=== PATIENT | female | born 2005 | race Caucasian/White ===

== ENCOUNTER 2024-03-01 20:58 | Emergency (ER) | payer MEDICAID ==
[~2024-03-01] VITALS: Ht 165.1 cm; Wt 68.0 kg
[2024-03-01 21:13] VITALS: O2SAT 100
[2024-03-01 21:25] LABS: BASOPHILS % 0.6 % (0.0-2.0); EOSINOPHILS % 1.3 % (0.0-5.0); HEMATOCRIT. 34.1 % (36.0-48.0); HEMOGLOBIN. 11.6 g/dL (12.0-16.0); LYMPHOCYTES % 27.6 % (20.0-50.0); MEAN CORPUSCULAR HEMOGLOBIN 29.3 pg (28.0-32.0); MEAN CORPUSCULAR HGB CONC 34.1 g/dL (31.0-37.0); MEAN PLATELET VOLUME 7.8 fl (7.4-10.4); MONOCYTES % 10.5 % (2.0-8.0); PLATELET 329 x1000/uL (130-400); RED BLOOD CELL COUNT 3.96 mill/uL (4.2-5.4); RED CELL DISTRIBUTION WIDTH 13.7 % (11.6-14.6); WHITE BLOOD COUNT 11.3 x1000/uL (4.5-11.0)
[2024-03-01 21:31] LABS: CHLORIDE 105 mEq/L (98-107); POTASSIUM 4.1 mEq/L (3.5-5.1); SODIUM 136 mEq/L (136-145)
[2024-03-01 21:32] LABS: CARBON DIOXIDE 22 mEq/L (21-32)
[2024-03-01 21:33] LABS: CALCIUM 9.3 mg/dL (8.7-10.4)
[2024-03-01 21:34] LABS: INR 0.9; PROTHROMBIN TIME 9.8 sec (9.6-11.0)
[2024-03-01 21:37] LABS: CREATININE 0.7 mg/dL (0.6-1.0)
[2024-03-01 21:38] LABS: GLUCOSE 79 mg/dL (70-105)
[2024-03-01 21:39] LABS: ALANINE AMINOTRANSFERASE 20 IU/L (10-49); ALBUMIN 4.4 g/dL (3.2-4.8); ASPARTATE AMINOTRANSFERASE 22 IU/L (<34); UREA NITROGEN BLOOD < 5 mg/dL (9-23)
[2024-03-01 21:40] LABS: BILIRUBIN TOTAL 0.4 mg/dL (0.1-1.0); PROTEIN TOTAL 6.8 g/dL (6.0-8.3)
[2024-03-01 21:53] LABS: B-HCG QUANTITATIVE 81768 mIU/mL (<3)
[2024-03-01 21:59] LABS: CLARITY URINE CLEAR (CLEAR); COLOR URINE YELLOW (YELLOW); GLUCOSE URINE NEGATIVE (NEGATIVE); KETONES URINE NEGATIVE (NEGATIVE); LEUKOCYTE ESTERASE URINE NEGATIVE (NEGATIVE); NITRITE URINE NEGATIVE (NEGATIVE); OCCULT BLOOD URINE NEGATIVE (NEGATIVE); PROTEIN URINE NEGATIVE (NEGATIVE); SPECIFIC GRAVITY URINE 1.003 (1.005-1.030); UROBILINOGEN URINE 0.2 E.U./dL (0.2-1.0)
[2024-03-01 22:00] VITALS: BP 111/63; PULSE 77; RESP 18; TEMP 98.2
[2024-03-01] MEDS: ACETAMINOPHEN 325MG TABLET PO ONE (22:19)
== END 2024-03-01 22:30 | disposition home or self-care (01) ==
LOC: ER 20:58
DX: O26.892 Other specified pregnancy related conditions, second trimester (principal); Z3A.22 22 weeks gestation of pregnancy
CPT/HCPCS: 80053; 81003; 84702; 85025; 85610; 86850; 86900; 86901; 36415; 76805; 99284; Z7610

== ENCOUNTER 2024-03-16 00:47 | Emergency (ER) | payer MEDICAID ==
[~2024-03-16] VITALS: Ht 165.1 cm; Wt 67.0 kg
[2024-03-16 00:58] VITALS: O2SAT 100
[2024-03-16 01:20] VITALS: TEMP 98.3
[2024-03-16 01:56] LABS: BASOPHILS % 0.4 % (0.0-2.0); EOSINOPHILS % 1.2 % (0.0-5.0); HEMATOCRIT. 32.8 % (36.0-48.0); HEMOGLOBIN. 11.4 g/dL (12.0-16.0); LYMPHOCYTES % 22.9 % (20.0-50.0); MEAN CORPUSCULAR HEMOGLOBIN 29.6 pg (28.0-32.0); MEAN CORPUSCULAR HGB CONC 34.9 g/dL (31.0-37.0); MEAN CORPUSCULAR VOLUME 84.9 fL (81.0-99.0); MEAN PLATELET VOLUME 7.5 fl (7.4-10.4); MONOCYTES % 7.9 % (2.0-8.0); NEUTROPHILS % 67.6 % (40.0-76.0); PLATELET 319 x1000/uL (130-400); RED BLOOD CELL COUNT 3.86 mill/uL (4.2-5.4); RED CELL DISTRIBUTION WIDTH 13.8 % (11.6-14.6); WHITE BLOOD COUNT 12.8 x1000/uL (4.5-11.0)
[2024-03-16 02:11] LABS: CHLORIDE 105 mEq/L (98-107); POTASSIUM 3.7 mEq/L (3.5-5.1); SODIUM 135 mEq/L (136-145)
[2024-03-16 02:12] LABS: CALCIUM 9.3 mg/dL (8.7-10.4); CARBON DIOXIDE 24 mEq/L (21-32)
[2024-03-16] MEDS: MAGNESIUM/ALUMINUM HYDROXIDE/SIMETHICONE 30ML UDC PO ONE (02:13)
[2024-03-16] MEDS: ACETAMINOPHEN 1000MG/100ML 100 ML IV ONE (02:14)
[2024-03-16 02:15] LABS: HCG SCREEN POSITIVE
[2024-03-16 02:17] LABS: CREATININE 0.5 mg/dL (0.6-1.0); GLUCOSE 81 mg/dL (70-105)
[2024-03-16 02:31] LABS: UREA NITROGEN BLOOD < 5 mg/dL (9-23)
[2024-03-16 02:32] LABS: B-HCG QUANTITATIVE 87217 mIU/mL (<3); TROPONIN I HIGH SENSITIVITY < 4 ng/L (3.0-34)
[2024-03-16] MEDS ORDERED: ACET-2708 MT (02:51)
[2024-03-16] MEDS ORDERED: MAG355OR21 MT (02:51)
[2024-03-16 02:54] VITALS: BP 122/76; PULSE 74; RESP 17
== END 2024-03-16 03:00 | disposition home or self-care (01) ==
LOC: ER 00:58
DX: O26.892 Other specified pregnancy related conditions, second trimester (principal); Z3A.24 24 weeks gestation of pregnancy; R07.89 Other chest pain; Z00.00 Encounter for general adult medical examination without abnormal findings
CPT/HCPCS: 36415; 71045; 80048; 84484; 84702; 84703; 85025; 85379; 86900; 93005; 93970; 96365; 99285; J0131